=== PATIENT | male | born 1940 | race Caucasian/White ===

== ENCOUNTER 2020-08-13 13:42 | Emergency (ER) | payer BC | END 2020-08-13 14:43 | disposition home or self-care (01) | LOC: JVIRT 13:42 | DX: U07.1 COVID-19 (principal) | CPT/HCPCS: C9803; G2012-GT; U0003 ==

== ENCOUNTER 2021-07-17 06:51 | Day surgery (SDC) | payer BC ==
[2021-07-09 14:49] VITALS: BMI 33.4
[2021-07-17] MEDS ORDERED: BUPIVACAINE HCL/PF 0.25% (2.5MG/ML) 10 ML VIAL ONE (08:26)
[2021-07-17] MEDS ORDERED: PROPOFOL 20 ML ONE (08:41)
[2021-07-17] MEDS ORDERED: MIDAZOLAM HCL 2 MG/2 ML SINGLE DOSE VIAL ONE (08:41)
[2021-07-17] MEDS ORDERED: ceFAZolin SODIUM 1 GM VIAL ONE (08:46)
[2021-07-17] MEDS ORDERED: ONDANSETRON 4 MG/2 ML VIAL ONE (08:48)
[2021-07-17] MEDS ORDERED: BUPIVACAINE HCL/PF 0.25% (2.5MG/ML) 10 ML VIAL IJ ONE (08:57)
[2021-07-17] MEDS ORDERED: LIDOCAINE HCL 1%, 10 MG/ML (50 mL VIAL) INF ONE (08:57)
[2021-07-17 10:30] VITALS: TEMP 97.8
[2021-07-17 10:35] VITALS: BP 110/56; PULSE 78
== END 2021-07-17 10:50 | disposition home or self-care (01) ==
LOC: FASU 06:51
PROVIDERS: ATTEND Orthopaedic Surgery
PROC: 01N50ZZ Release Median Nerve, Open Approach (ICD-10-PCS; principal; 2021-07-17 08:57)
PROC: 0LN70ZZ Release Right Hand Tendon, Open Approach (ICD-10-PCS; 2021-07-17 08:57)
DX: G56.01 Carpal tunnel syndrome, right upper limb (principal); M65.331 Trigger finger, right middle finger; M65.9 Synovitis and tenosynovitis, unspecified
CPT/HCPCS: 82962

== ENCOUNTER 2022-01-28 13:01 | Observation (INO) | payer BC, OTHER ==
[2022-01-28 13:11] VITALS: BMI 31.9
[2022-01-28] MEDS ORDERED: ACETAMINOPHEN 1000 MG/100 ML BAG IVPB ONE (13:58)
[2022-01-28] MEDS ORDERED: ACETAMINOPHEN INJECTION 100 ML IVPB ONE ×2 (14:03→22:48)
[2022-01-28 15:59] LABS: BASO % 0.7 % (0-2.0); EOS % 2.2 % (0-4.5); HEMATOCRIT 39.4 % (35.4-49); HEMOGLOBIN 12.7 GM/dL (11.7-16.9); LYMPH % 30.1 % (8-40); MCH 27.5 pg (25.7-33.7); MCHC 32.2 g/dl (32.0-35.9); MEAN CELL VOLUME 85.3 fl (80-96); MEAN PLT VOLUME 7.7 fl (7.5-11.1); MONO % 9.8 % (3.8-10.2); NEUT % 57.2 % (42.8-82.8); PLATELET COUNT 266 10^3/uL (134-434); RBC 4.61 M/mm3 (4.00-5.60); RDW 14.9 % (11.9-15.9); WHITE BLOOD COUNT 5.9 K/mm3 (4.0-10.0)
[2022-01-28 16:10] LABS: INR 1.09 (0.83-1.09); PROTHROMBIN TIME (PATIENT) 12.5 SEC (9.7-13.0)
[2022-01-28 16:13] LABS: ACTIVATED PTT 30.5 SECONDS (25.2-36.5)
[2022-01-28 16:21] LABS: ALBUMIN 3.9 g/dl (3.4-5.0); BLOOD UREA NITROGEN 16.2 mg/dL (7-18); CALCIUM 9.3 mg/dL (8.5-10.1); MAGNESIUM 2.1 mg/dL (1.8-2.4)
[2022-01-28 16:24] LABS: CREATININE 0.9 mg/dL (0.55-1.3)
[2022-01-28 16:26] LABS: BILIRUBIN,TOTAL 0.2 mg/dL (0.2-1); TOT PROT 7.6 g/dl (6.4-8.2)
[2022-01-28] MEDS ORDERED: KETOROLAC TROMETHAMINE 30 MG/1 ML VIAL IVPUSH ONE (18:03)
[2022-01-28] MEDS ORDERED: KETOROLAC TROMETHAMINE 15 MG/ML VIAL ONE (18:05)
[2022-01-28] MEDS ORDERED: METOPROLOL TARTRATE 50 MG TABLET (FP) PO ONE (19:47)
[2022-01-28] MEDS ORDERED: RAMIPRIL 5 MG CAPSULE PO ONE (19:50)
[2022-01-28] MEDS ORDERED: METOPROLOL TARTRATE 50 MG TABLET (FP) ONE ×2 (19:51→22:48)
[2022-01-28] MEDS ORDERED: RAMIPRIL 5 MG CAPSULE ONE (20:44)
[2022-01-28] MEDS ORDERED: METOPROLOL TARTRATE 50 MG TABLET (FP) PO SCH (22:00)
[2022-01-28] MEDS ORDERED: HYDROCHLOROTHIAZIDE 25 MG TABLET (FP) PO SCH (22:00)
[2022-01-28] MEDS ORDERED: HYDROCHLOROTHIAZIDE 25 MG TABLET (FP) ONE (22:47)
[2022-01-28] MEDS: INSULIN SLIDING SCALE (NOVOLOG) 1 VIAL SQ SCH (23:00)
[2022-01-28] MEDS: ACETAMINOPHEN 1000 MG/100 ML BAG IVPB SCH (23:00)
[2022-01-29 05:46] LABS: URINE APPEARANCE CLEAR; URINE BILIRUBIN NEGATIVE (NEGATIVE); URINE COLOR YELLOW; URINE GLUCOSE (UA) NEGATIVE (NEGATIVE); URINE KETONE NEGATIVE (NEGATIVE); URINE LEUK ESTERASE NEGATIVE (NEGATIVE); URINE NITRITE NEGATIVE (NEGATIVE); URINE PROTEIN NEGATIVE (NEGATIVE); URINE UROBILINOGEN 0.2 mg/dL (0.2-1.0)
[2022-01-29] MEDS: INSULIN SLIDING SCALE (NOVOLOG) 1 VIAL SQ SCH ×4 (08:18→21:06)
[2022-01-29] MEDS: CHLORTHALIDONE 25 MG TABLET PO SCH (09:13)
[2022-01-29] MEDS: CLOPIDOGREL BISULFATE 75 MG TABLET (FP) PO SCH (09:13)
[2022-01-29] MEDS: ACETAMINOPHEN 1000 MG/100 ML BAG IVPB SCH ×2 (09:14→18:23)
[2022-01-29] MEDS: RAMIPRIL 5 MG CAPSULE PO SCH (09:14)
[2022-01-29] MEDS: ENOXAPARIN NA (PORCINE) 40 MG/0.4 ML DISP.SYRIN SQ SCH (09:16)
[2022-01-29 09:17] LABS: INR 1.13 (0.83-1.09)
[2022-01-29 09:19] LABS: ACTIVATED PTT 29.3 SECONDS (25.2-36.5)
[2022-01-29 09:26] LABS: BASO % 0.8 % (0-2.0); EOS % 1.5 % (0-4.5); HEMATOCRIT 41.2 % (35.4-49); HEMOGLOBIN 13.5 GM/dL (11.7-16.9); LYMPH % 31.1 % (8-40); MCH 27.8 pg (25.7-33.7); MCHC 32.8 g/dl (32.0-35.9); MEAN CELL VOLUME 84.9 fl (80-96); MEAN PLT VOLUME 7.5 fl (7.5-11.1); NEUT % 55.6 % (42.8-82.8); PLATELET COUNT 261 10^3/uL (134-434); RBC 4.86 M/mm3 (4.00-5.60); RDW 14.7 % (11.9-15.9); WHITE BLOOD COUNT 6.4 K/mm3 (4.0-10.0)
[2022-01-29 09:29] LABS: BLOOD UREA NITROGEN 17.1 mg/dL (7-18); CALCIUM 9.3 mg/dL (8.5-10.1); MAGNESIUM 2.1 mg/dL (1.8-2.4)
[2022-01-29 09:32] LABS: CREATININE 0.9 mg/dL (0.55-1.3); PHOSPHOROUS 3.6 mg/dL (2.5-4.9)
[2022-01-29 09:33] LABS: BILIRUBIN,TOTAL 0.6 mg/dL (0.2-1); TOT PROT 7.6 g/dl (6.4-8.2)
[2022-01-29 09:35] LABS: N-TERMINAL BNP 293.7 pg/ml (5-450)
[2022-01-29] MEDS ORDERED: VALSARTAN 160 MG TABLET PO SCH (10:00)
[2022-01-29] MEDS: amLODIPine BESYLATE 10 MG TABLET (FP) PO SCH (17:38)
[2022-01-29] MEDS ORDERED: ATORVASTATIN CA 10 MG TABLET (FP) PO SCH (22:00)
[2022-01-30] MEDS: INSULIN SLIDING SCALE (NOVOLOG) 1 VIAL SQ SCH ×2 (06:06→12:18)
[2022-01-30] MEDS: CLOPIDOGREL BISULFATE 75 MG TABLET (FP) PO SCH (10:04)
[2022-01-30] MEDS: ENOXAPARIN NA (PORCINE) 40 MG/0.4 ML DISP.SYRIN SQ SCH (10:05)
[2022-01-30] MEDS: amLODIPine BESYLATE 10 MG TABLET (FP) PO SCH (10:05)
[2022-01-30] MEDS: RAMIPRIL 5 MG CAPSULE PO SCH (10:05)
[2022-01-30] MEDS: CHLORTHALIDONE 25 MG TABLET PO SCH (10:05)
[2022-01-30] MEDS ORDERED: ACETAMINOPHEN 1000 MG/100 ML BAG IVPB PRN (11:07)
[2022-01-30 13:34] VITALS: BP 115/79; PULSE 84; TEMP 98.3
== END 2022-01-30 16:30 | disposition home or self-care (01) ==
LOC: JER 13:01 → JERBED 18:38 → INTOOBSV 18:38 → J4S 01-29 08:01
PROVIDERS: ADMIT Hospitalist; ATTEND Internal Medicine
PROC: 3E033NZ Introduction of Analgesics, Hypnotics, Sedatives into Peripheral Vein, Percutaneous Approach (ICD-10-PCS; principal; 2022-01-28)
PROC: 3E023GC Introduction of Other Therapeutic Substance into Muscle, Percutaneous Approach (ICD-10-PCS; 2022-01-28)
PROC: 3E0333Z Introduction of Anti-inflammatory into Peripheral Vein, Percutaneous Approach (ICD-10-PCS; 2022-01-28)
DX: I16.0 Hypertensive urgency (principal); I11.0 Hypertensive heart disease with heart failure; I50.30 Unspecified diastolic (congestive) heart failure; E11.9 Type 2 diabetes mellitus without complications; E78.5 Hyperlipidemia, unspecified; E66.9 Obesity, unspecified; F41.9 Anxiety disorder, unspecified; Z68.31 Body mass index [BMI] 31.0-31.9, adult; I44.7 Left bundle-branch block, unspecified; Z86.73 Personal history of transient ischemic attack (TIA), and cerebral infarction without residual deficits; Z79.01 Long term (current) use of anticoagulants; Z96.653 Presence of artificial knee joint, bilateral
CPT/HCPCS: 36415; 71046-TC-FY; 80053; 80061; 81003; 82962; 83036; 83735; 83880; 84100; 84443; 84484; 85025; 85610; 85730; 93005; 93010; 93306-TC; 96372; 96374; 96375; 96376; 99285-25; C9803-CS; G0378; U0003; U0005

== ENCOUNTER 2022-03-12 05:58 | Day surgery (SDC) | payer OTHER ==
[2022-03-05 09:43] VITALS: BMI 31.9
[2022-03-12] MEDS ORDERED: MIDAZOLAM HCL 2 MG/2 ML SINGLE DOSE VIAL ONE ×4 (07:06→08:58)
[2022-03-12] MEDS ORDERED: PROPOFOL 20 ML ONE ×3 (07:06→09:07)
[2022-03-12] MEDS ORDERED: ROPIVACAINE HCL/PF 100 MG/20 ML VIAL ONE (07:14)
[2022-03-12] MEDS ORDERED: DEXAMETHASONE SOD PHOSPHATE 10 MG/1 ML VIAL ONE (07:14)
[2022-03-12] MEDS ORDERED: LIDOCAINE HCL 1%, 10 MG/ML (20ML VIAL) ONE (07:54)
[2022-03-12] MEDS ORDERED: BUPIVACAINE HCL/PF 0.25% (2.5MG/ML) 10 ML VIAL ONE (07:55)
[2022-03-12] MEDS ORDERED: BUPIVACAINE HCL/PF 2.5 MG/ML - 30 ML VIAL IJ ONE (07:55)
[2022-03-12] MEDS ORDERED: METOPROLOL TARTRATE 5 MG/5 ML VIAL ONE (09:30)
[2022-03-12] MEDS ORDERED: ONDANSETRON 4 MG/2 ML VIAL ONE (09:30)
[2022-03-12] MEDS ORDERED: DEXAMETHASONE SOD PHOSPHATE 4 MG/1 ML VIAL ONE (09:30)
[2022-03-12] MEDS ORDERED: ceFAZolin SODIUM 1 GM VIAL ONE (09:30)
[2022-03-12] MEDS ORDERED: oxyCODONE HCL 5 MG TABLET PO PRN (09:50)
[2022-03-12] MEDS ORDERED: ONDANSETRON 4 MG/2 ML VIAL IVPUSH PRN (09:50)
[2022-03-12] MEDS ORDERED: LACTATED RINGERS SOLUTION 1,000 ML IV SCH (10:00)
[2022-03-12 10:13] VITALS: TEMP 97.5
[2022-03-12 12:32] VITALS: BP 133/63; PULSE 88
== END 2022-03-12 13:00 | disposition home or self-care (01) ==
LOC: FASU 05:58
PROVIDERS: ATTEND Orthopaedic Surgery
PROC: 0RBK4ZZ Excision of Left Shoulder Joint, Percutaneous Endoscopic Approach (ICD-10-PCS; 2022-03-12)
PROC: 0LQ24ZZ Repair Left Shoulder Tendon, Percutaneous Endoscopic Approach (ICD-10-PCS; principal; 2022-03-12 07:30)
PROC: 0RNK4ZZ Release Left Shoulder Joint, Percutaneous Endoscopic Approach (ICD-10-PCS; 2022-03-12 07:30)
DX: M75.102 Unspecified rotator cuff tear or rupture of left shoulder, not specified as traumatic (principal); M75.02 Adhesive capsulitis of left shoulder; M75.42 Impingement syndrome of left shoulder; M19.012 Primary osteoarthritis, left shoulder; M24.112 Other articular cartilage disorders, left shoulder; M65.812 Other synovitis and tenosynovitis, left shoulder
CPT/HCPCS: 82962; 94760; J1100

== ENCOUNTER 2022-05-26 13:35 | Observation (INO) | payer OTHER ==
[2022-05-26 13:44] VITALS: BMI 31.9
[2022-05-26] MEDS ORDERED: ACETAMINOPHEN 1000 MG/100 ML BAG IVPB ONE (15:28)
[2022-05-26] MEDS ORDERED: ACETAMINOPHEN INJECTION 100 ML IVPB ONE ×2 (15:50→22:39)
[2022-05-26 17:01] LABS: BASO % 0.4 % (0-2.0); EOS % 1.3 % (0-4.5); HEMATOCRIT 37.9 % (35.4-49); HEMOGLOBIN 12.5 GM/dL (11.7-16.9); LYMPH % 18.3 % (8-40); MCH 28.1 pg (25.7-33.7); MCHC 32.9 g/dl (32.0-35.9); MEAN CELL VOLUME 85.4 fl (80-96); MEAN PLT VOLUME 7.8 fl (7.5-11.1); MONO % 11.8 % (3.8-10.2); NEUT % 68.2 % (42.8-82.8); PLATELET COUNT 256 10^3/uL (134-434); RBC 4.43 M/mm3 (4.00-5.60); RDW 14.2 % (11.9-15.9); WHITE BLOOD COUNT 8.5 K/mm3 (4.0-10.0)
[2022-05-26 17:21] LABS: CHLORIDE 104 mmol/L (98-107); SODIUM 137 mmol/L (136-145)
[2022-05-26 17:23] LABS: ACTIVATED PTT 29.2 SECONDS (25.2-36.5); INR 1.15 (0.83-1.09); PROTHROMBIN TIME (PATIENT) 13.2 SEC (9.7-13.0)
[2022-05-26 17:25] LABS: ALBUMIN 3.2 g/dl (3.4-5.0); BLOOD UREA NITROGEN 20.2 mg/dL (7-18); CALCIUM 9.1 mg/dL (8.5-10.1); CO2 27 mmol/L (21-32); GLUCOSE,RANDOM 119 mg/dL (74-106)
[2022-05-26 17:28] LABS: CREATININE 1.1 mg/dL (0.55-1.3); SGOT/AST 70 U/L (15-37); SGPT/ALT 27 U/L (13-61)
[2022-05-26 17:30] LABS: BILIRUBIN,TOTAL 0.9 mg/dL (0.2-1); TOT PROT 7.4 g/dl (6.4-8.2)
[2022-05-26 17:31] LABS: ALK PHOS 59 U/L (45-117)
[2022-05-26 17:37] LABS: ANION GAP 7 MMOL/L (8-16)
[2022-05-26] MEDS ORDERED: ASPIRIN 81 MG CHEWABLE TABLETS PO ONE (17:39)
[2022-05-26] MEDS ORDERED: FAMOTIDINE 20 MG/50 ML IVPB 20 MG/50 ML MG IVPB ONE ×2 (17:39→17:48)
[2022-05-26] MEDS ORDERED: SUCRALFATE 1 GM TABLET (FP) PO ONE (17:39)
[2022-05-26] MEDS ORDERED: MAG HYDROX/AL HYDROX/SIMETH 30 ML UNIT-DOSE CUP PO ONE (17:39)
[2022-05-26] MEDS ORDERED: SUCRALFATE 1 GM TABLET (FP) ONE (17:48)
[2022-05-26] MEDS ORDERED: ASPIRIN 81 MG CHEWABLE TABLETS ONE (17:48)
[2022-05-26] MEDS ORDERED: MAG HYDROX/AL HYDROX/SIMETH 30 ML UNIT-DOSE CUP ONE (17:48)
[2022-05-26] MEDS ORDERED: DOCUSATE SODIUM 100 MG CAPSULE (FP) PO PRN (19:56)
[2022-05-26] MEDS: ACETAMINOPHEN 1000 MG/100 ML BAG IVPB PRN (23:00)
[2022-05-27] MEDS: INSULIN SLIDING SCALE (NOVOLOG) 1 VIAL SQ SCH ×5 (00:24→23:00)
[2022-05-27] MEDS: traMADol HCL 50 MG TABLET PO PRN ×2 (06:14→21:08)
[2022-05-27] MEDS ORDERED: CYCLOBENZAPRINE HCL 5 MG TABLET PO PRN (06:59)
[2022-05-27] MEDS: CLOPIDOGREL BISULFATE 75 MG TABLET (FP) PO SCH (09:42)
[2022-05-27] MEDS: FUROSEMIDE 20 MG TABLET (FP) PO SCH ×2 (09:42→21:11)
[2022-05-27 10:25] LABS: HEMATOCRIT 37.8 % (35.4-49); HEMOGLOBIN 12.5 GM/dL (11.7-16.9); MCH 28.1 pg (25.7-33.7); MCHC 32.9 g/dl (32.0-35.9); MEAN CELL VOLUME 85.4 fl (80-96); MEAN PLT VOLUME 7.7 fl (7.5-11.1); PLATELET COUNT 252 10^3/uL (134-434); RBC 4.43 M/mm3 (4.00-5.60); RDW 14.3 % (11.9-15.9)
[2022-05-27 10:47] LABS: BLOOD UREA NITROGEN 14.5 mg/dL (7-18); MAGNESIUM 1.9 mg/dL (1.8-2.4)
[2022-05-27] MEDS: ACETAMINOPHEN 1000 MG/100 ML BAG IVPB PRN (13:10)
[2022-05-27] MEDS: CHLORTHALIDONE 25 MG TABLET PO SCH (13:31)
[2022-05-27] MEDS: METOPROLOL TARTRATE 50 MG TABLET (FP) PO SCH ×2 (13:34→21:11)
[2022-05-27] MEDS ORDERED: clonazePAM 0.5 MG TABLET PO PRN (13:40)
[2022-05-27] MEDS: SACUBITRIL/VALSARTAN 24 MG-26 MG TABLET PO SCH ×2 (14:22→21:11)
[2022-05-28] MEDS ORDERED: ACETAMINOPHEN 325 MG TABLET (FP) PO PRN
[2022-05-28] MEDS: INSULIN SLIDING SCALE (NOVOLOG) 1 VIAL SQ SCH ×2 (06:47→11:07)
[2022-05-28 09:22] VITALS: BP 152/85; PULSE 80; RESP 18; TEMP 98
[2022-05-28] MEDS: CHLORTHALIDONE 25 MG TABLET PO SCH (09:24)
[2022-05-28] MEDS: CLOPIDOGREL BISULFATE 75 MG TABLET (FP) PO SCH (09:24)
[2022-05-28] MEDS: METOPROLOL TARTRATE 50 MG TABLET (FP) PO SCH (09:24)
[2022-05-28] MEDS: FUROSEMIDE 20 MG TABLET (FP) PO SCH (09:24)
[2022-05-28] MEDS: SACUBITRIL/VALSARTAN 24 MG-26 MG TABLET PO SCH (09:24)
== END 2022-05-28 15:00 | disposition home or self-care (01) ==
LOC: JER 13:35 → JERBED 18:08 → J4W 05-27 05:12
PROVIDERS: ADMIT Internal Medicine; ATTEND Internal Medicine
PROC: 3E033NZ Introduction of Analgesics, Hypnotics, Sedatives into Peripheral Vein, Percutaneous Approach (ICD-10-PCS; principal; 2022-05-26)
PROC: 3E033GC Introduction of Other Therapeutic Substance into Peripheral Vein, Percutaneous Approach (ICD-10-PCS; 2022-05-26)
DX: I25.10 Atherosclerotic heart disease of native coronary artery without angina pectoris (principal); I44.7 Left bundle-branch block, unspecified; I10 Essential (primary) hypertension; E11.9 Type 2 diabetes mellitus without complications; M25.511 Pain in right shoulder; R07.9 Chest pain, unspecified; R06.09 Other forms of dyspnea; Z86.73 Personal history of transient ischemic attack (TIA), and cerebral infarction without residual deficits; E66.8 Other obesity; Z68.31 Body mass index [BMI] 31.0-31.9, adult
CPT/HCPCS: 36415; 71046-TC-FY; 72050-TC-FY; 73030-TC-RT-FY; 80048; 80053; 82962; 83735; 84132; 84484; 85025; 85027; 85610; 85730; 93005; 93010; 93306-TC; 96365; 96375; 96376; 99285-25; C9803-CS; G0378; U0003; U0005

== ENCOUNTER 2022-05-29 01:50 | Observation (INO) | payer OTHER ==
[2022-05-29] MEDS ORDERED: ACETAMINOPHEN 500 MG TABLET (FP) PO ONE (03:10)
[2022-05-29] MEDS ORDERED: ACETAMINOPHEN 325 MG TABLET (FP) ONE ×3 (03:43→14:11)
[2022-05-29 04:05] LABS: BASO % 0.5 % (0-2.0); EOS % 0.6 % (0-4.5); HEMATOCRIT 41.6 % (35.4-49); HEMOGLOBIN 13.9 GM/dL (11.7-16.9); LYMPH % 18.1 % (8-40); MCH 28.4 pg (25.7-33.7); MCHC 33.3 g/dl (32.0-35.9); MEAN CELL VOLUME 85.2 fl (80-96); MEAN PLT VOLUME 7.1 fl (7.5-11.1); MONO % 9.4 % (3.8-10.2); NEUT % 71.4 % (42.8-82.8); PLATELET COUNT 311 10^3/uL (134-434); RBC 4.88 M/mm3 (4.00-5.60); RDW 14.1 % (11.9-15.9); WHITE BLOOD COUNT 8.2 K/mm3 (4.0-10.0)
[2022-05-29 04:26] LABS: CALCIUM 9.4 mg/dL (8.5-10.1)
[2022-05-29 04:27] LABS: ALBUMIN 3.7 g/dl (3.4-5.0)
[2022-05-29 04:30] LABS: CREATININE 1.2 mg/dL (0.55-1.3)
[2022-05-29 04:31] LABS: BILIRUBIN,TOTAL 0.3 mg/dL (0.2-1); TOT PROT 7.8 g/dl (6.4-8.2)
[2022-05-29] MEDS ORDERED: morphine CARPU-JECT 4 MG/1 ML DISP.SYRIN IVPUSH ONE (05:00)
[2022-05-29] MEDS ORDERED: morphine SULFATE 4 MG/ML VIAL ONE (05:23)
[2022-05-29] MEDS ORDERED: QUEtiapine FUMARATE 25 MG TABLET ONE (06:15)
[2022-05-29] MEDS ORDERED: KETOROLAC TROMETHAMINE 15 MG/ML VIAL IVPUSH PRN (07:54)
[2022-05-29] MEDS ORDERED: RAMIPRIL 5 MG CAPSULE PO SCH (10:00)
[2022-05-29] MEDS: ACETAMINOPHEN 325 MG TABLET (FP) PO SCH ×3 (10:08→21:24)
[2022-05-29] MEDS: RAMIPRIL 5 MG CAPSULE PO SCH (10:09)
[2022-05-29] MEDS: ENOXAPARIN NA (PORCINE) 40 MG/0.4 ML DISP.SYRIN SQ SCH (10:09)
[2022-05-29] MEDS: ASPIRIN 81 MG CHEWABLE TABLETS PO SCH (10:09)
[2022-05-29] MEDS: amLODIPine BESYLATE 10 MG TABLET (FP) PO SCH (10:10)
[2022-05-29] MEDS: PANTOPRAZOLE 40 MG TABLET PO SCH (10:10)
[2022-05-29] MEDS ORDERED: PANTOPRAZOLE 40 MG TABLET PO ONE (10:39)
[2022-05-29] MEDS ORDERED: amLODIPine BESYLATE 10 MG TABLET (FP) ONE (10:39)
[2022-05-29] MEDS ORDERED: RAMIPRIL 5 MG CAPSULE ONE (10:40)
[2022-05-29] MEDS ORDERED: ASPIRIN 81 MG CHEWABLE TABLETS ONE (10:40)
[2022-05-29] MEDS ORDERED: ENOXAPARIN NA (PORCINE) 40 MG/0.4 ML DISP.SYRIN SQ ONE (10:41)
[2022-05-29] MEDS: FUROSEMIDE 40 MG TABLET (FP) PO SCH (14:00)
[2022-05-29] MEDS ORDERED: FUROSEMIDE 40 MG TABLET (FP) ONE (14:11)
[2022-05-29 17:21] VITALS: BMI 32.5
[2022-05-29] MEDS: ATORVASTATIN CA 80 MG TABLET (FP) PO SCH (21:24)
[2022-05-30] MEDS: oxyCODONE HCL 5 MG TABLET PO PRN (00:23)
[2022-05-30] MEDS: ACETAMINOPHEN 325 MG TABLET (FP) PO SCH ×4 (01:54→21:17)
[2022-05-30] MEDS: FUROSEMIDE 40 MG TABLET (FP) PO SCH ×2 (06:24→14:46)
[2022-05-30] MEDS: PANTOPRAZOLE 40 MG TABLET PO SCH (09:34)
[2022-05-30] MEDS: ENOXAPARIN NA (PORCINE) 40 MG/0.4 ML DISP.SYRIN SQ SCH (09:34)
[2022-05-30] MEDS: RAMIPRIL 5 MG CAPSULE PO SCH (09:36)
[2022-05-30] MEDS: amLODIPine BESYLATE 10 MG TABLET (FP) PO SCH (09:36)
[2022-05-30] MEDS: ASPIRIN 81 MG CHEWABLE TABLETS PO SCH (09:38)
[2022-05-30 09:39] LABS: BASO % 0.5 % (0-2.0); EOS % 1.8 % (0-4.5); HEMATOCRIT 40.7 % (35.4-49); HEMOGLOBIN 13.6 GM/dL (11.7-16.9); LYMPH % 19.5 % (8-40); MCH 28.4 pg (25.7-33.7); MCHC 33.4 g/dl (32.0-35.9); MEAN CELL VOLUME 85.1 fl (80-96); MEAN PLT VOLUME 7.3 fl (7.5-11.1); NEUT % 69.2 % (42.8-82.8); PLATELET COUNT 346 10^3/uL (134-434); RBC 4.78 M/mm3 (4.00-5.60); RDW 13.9 % (11.9-15.9); WHITE BLOOD COUNT 7.3 K/mm3 (4.0-10.0)
[2022-05-30 09:57] LABS: ALBUMIN 3.6 g/dl (3.4-5.0)
[2022-05-30 09:58] LABS: BLOOD UREA NITROGEN 37.3 mg/dL (7-18)
[2022-05-30 10:00] LABS: CREATININE 1.3 mg/dL (0.55-1.3)
[2022-05-30 10:02] LABS: BILIRUBIN,TOTAL 0.6 mg/dL (0.2-1); CALCIUM 9.2 mg/dL (8.5-10.1); TOT PROT 7.9 g/dl (6.4-8.2)
[2022-05-30 18:32] VITALS: RESP 18
[2022-05-30] MEDS: ATORVASTATIN CA 80 MG TABLET (FP) PO SCH (21:18)
[2022-05-31] MEDS: oxyCODONE HCL 5 MG TABLET PO PRN ×2 (00:51→09:56)
[2022-05-31] MEDS: ACETAMINOPHEN 325 MG TABLET (FP) PO SCH ×3 (02:20→15:00)
[2022-05-31] MEDS: FUROSEMIDE 40 MG TABLET (FP) PO SCH (06:14)
[2022-05-31 09:01] LABS: BASO % 0.8 % (0-2.0); EOS % 2.7 % (0-4.5); HEMATOCRIT 38.9 % (35.4-49); HEMOGLOBIN 12.8 GM/dL (11.7-16.9); LYMPH % 26.8 % (8-40); MCH 27.9 pg (25.7-33.7); MCHC 32.8 g/dl (32.0-35.9); MEAN CELL VOLUME 85.1 fl (80-96); MEAN PLT VOLUME 7.2 fl (7.5-11.1); MONO % 10.6 % (3.8-10.2); NEUT % 59.1 % (42.8-82.8); PLATELET COUNT 320 10^3/uL (134-434); RBC 4.58 M/mm3 (4.00-5.60); RDW 14.2 % (11.9-15.9); WHITE BLOOD COUNT 5.8 K/mm3 (4.0-10.0)
[2022-05-31 09:26] LABS: CALCIUM 9.1 mg/dL (8.5-10.1)
[2022-05-31 09:27] LABS: ALBUMIN 3.7 g/dl (3.4-5.0); BLOOD UREA NITROGEN 35.2 mg/dL (7-18)
[2022-05-31 09:30] LABS: CREATININE 1.2 mg/dL (0.55-1.3)
[2022-05-31 09:32] LABS: BILIRUBIN,TOTAL 0.4 mg/dL (0.2-1); TOT PROT 7.6 g/dl (6.4-8.2)
[2022-05-31] MEDS: ASPIRIN 81 MG CHEWABLE TABLETS PO SCH (09:53)
[2022-05-31] MEDS: ENOXAPARIN NA (PORCINE) 40 MG/0.4 ML DISP.SYRIN SQ SCH (09:53)
[2022-05-31] MEDS: RAMIPRIL 5 MG CAPSULE PO SCH (09:54)
[2022-05-31] MEDS: amLODIPine BESYLATE 10 MG TABLET (FP) PO SCH (09:54)
[2022-05-31] MEDS: PANTOPRAZOLE 40 MG TABLET PO SCH (09:54)
[2022-05-31] MEDS ORDERED: LIDOCAINE HCL 1%, 10 MG/ML (20ML VIAL) SQ ONE (12:00)
[2022-05-31] MEDS ORDERED: methylPREDNISolone ACET (DEPO) 80 MG/1 ML VIAL IAR ONE (12:00)
[2022-05-31 14:15] VITALS: BP 106/53; PULSE 86; TEMP 97.8
== END 2022-05-31 16:55 | disposition home or self-care (01) ==
LOC: JER 01:50 → JERBED 03:40 → UNDOADMOB 03:40 → INTOOBSV 07:54 → OBSVTOIN 07:54 → JERBED 16:05 → J7W 16:05 → JERBED 16:25 → J7W 16:25
PROVIDERS: ADMIT Internal Medicine; ATTEND Internal Medicine
PROC: 3E023GC Introduction of Other Therapeutic Substance into Muscle, Percutaneous Approach (ICD-10-PCS; principal; 2022-05-29)
PROC: 3E033NZ Introduction of Analgesics, Hypnotics, Sedatives into Peripheral Vein, Percutaneous Approach (ICD-10-PCS; 2022-05-29)
DX: I11.0 Hypertensive heart disease with heart failure (principal); I50.9 Heart failure, unspecified; Z86.73 Personal history of transient ischemic attack (TIA), and cerebral infarction without residual deficits; E11.9 Type 2 diabetes mellitus without complications; I25.10 Atherosclerotic heart disease of native coronary artery without angina pectoris
CPT/HCPCS: 0241U-QW; 36415; 71045-TC-FY; 80053; 82550; 82553; 84484; 85025; 85651; 86140; 93005; 93010; 96372; 96374; 97116-GP; 99285-25; G0378

== ENCOUNTER 2023-12-26 20:07 | Observation (INO) | payer OTHER ==
[2023-12-26 21:37] LABS: BASO % 0.8 % (0-2.0); EOS % 2.2 % (0-4.5); HEMATOCRIT 43.3 % (35.4-49); HEMOGLOBIN 14.1 GM/dL (11.7-16.9); LYMPH % 23.1 % (8-40); MCH 27.9 pg (25.7-33.7); MCHC 32.7 g/dl (32.0-35.9); MEAN CELL VOLUME 85.4 fl (80-96); MEAN PLT VOLUME 8.2 fl (7.5-11.1); MONO % 9.5 % (3.8-10.2); NEUT % 64.4 % (42.8-82.8); PLATELET COUNT 220 10^3/uL (134-434); RBC 5.07 M/mm3 (4.00-5.60); RDW 14.3 % (11.9-15.9); WHITE BLOOD COUNT 6.7 K/mm3 (4.0-10.0)
[2023-12-26 21:43] LABS: INR 1.12 (0.83-1.09)
[2023-12-26 21:46] LABS: ACTIVATED PTT 30.3 SECONDS (25.2-36.5)
[2023-12-26 21:48] LABS: POTASSIUM 4.3 mmol/L (3.5-5.1)
[2023-12-26 21:50] LABS: CALCIUM 8.6 mg/dL (8.5-10.1)
[2023-12-26 21:51] LABS: ALBUMIN 3.7 g/dl (3.4-5.0); BLOOD UREA NITROGEN 20.9 mg/dL (7-18)
[2023-12-26 21:54] LABS: CREATININE 1.4 mg/dL (0.55-1.3)
[2023-12-26 21:56] LABS: BILIRUBIN,TOTAL 0.3 mg/dL (0.2-1); TOT PROT 7.4 g/dl (6.4-8.2)
[2023-12-26 21:59] LABS: N-TERMINAL BNP 114.3 pg/ml (5-450)
[2023-12-26] MEDS ORDERED: CARVEDILOL 25 MG TABLET (FP) ONE (23:50)
[2023-12-26] MEDS ORDERED: VALSARTAN 80 MG TABLET ONE (23:50)
[2023-12-26] MEDS: VALSARTAN 160 MG TABLET PO ONE (23:54)
[2023-12-26] MEDS: CARVEDILOL 25 MG TABLET (FP) PO ONE (23:54)
[2023-12-27] MEDS: FUROSEMIDE 40 MG/4 ML INJECTABLE VIAL IVPUSH ONE (05:23)
[2023-12-27] MEDS ORDERED: FUROSEMIDE 40 MG/4 ML INJECTABLE VIAL ONE (06:06)
[2023-12-27] MEDS: FUROSEMIDE 40 MG/4 ML INJECTABLE VIAL IVPUSH SCH (06:11)
[2023-12-27 06:25] LABS: HEMOGLOBIN 13.4 GM/dL (11.7-16.9); MCH 28.2 pg (25.7-33.7); MCHC 32.6 g/dl (32.0-35.9); MEAN CELL VOLUME 86.4 fl (80-96); MEAN PLT VOLUME 8.1 fl (7.5-11.1); PLATELET COUNT 187 10^3/uL (134-434); RBC 4.75 M/mm3 (4.00-5.60); RDW 14.2 % (11.9-15.9); WHITE BLOOD COUNT 7.6 K/mm3 (4.0-10.0)
[2023-12-27 06:44] LABS: CALCIUM 8.7 mg/dL (8.5-10.1)
[2023-12-27 06:45] LABS: ALBUMIN 3.3 g/dl (3.4-5.0); BLOOD UREA NITROGEN 21.2 mg/dL (7-18)
[2023-12-27 06:46] LABS: MAGNESIUM 1.9 mg/dL (1.8-2.4)
[2023-12-27 06:49] LABS: BILIRUBIN,TOTAL 0.5 mg/dL (0.2-1); PHOSPHOROUS 3.2 mg/dL (2.5-4.9)
[2023-12-27 06:50] LABS: TOT PROT 6.4 g/dl (6.4-8.2)
[2023-12-27] MEDS ORDERED: HYDROCHLOROTHIAZIDE 25 MG TABLET (FP) PO SCH (10:00)
[2023-12-27] MEDS: VALSARTAN 160 MG TABLET PO SCH (11:40)
[2023-12-27] MEDS ORDERED: ASPIRIN 81 MG CHEWABLE TABLETS ONE (11:41)
[2023-12-27] MEDS ORDERED: FOLIC ACID 1 MG TABLET (FP) ONE (11:41)
[2023-12-27] MEDS ORDERED: ATORVASTATIN CA 10 MG TABLET (FP) ONE (11:41)
[2023-12-27] MEDS ORDERED: ENOXAPARIN NA (PORCINE) 40 MG/0.4 ML DISP.SYRIN SQ ONE (11:42)
[2023-12-27] MEDS: ASPIRIN 81 MG CHEWABLE TABLETS PO SCH (11:46)
[2023-12-27] MEDS: FOLIC ACID 1 MG TABLET (FP) PO SCH (11:47)
[2023-12-27] MEDS: ENOXAPARIN NA (PORCINE) 40 MG/0.4 ML DISP.SYRIN SQ SCH (11:47)
[2023-12-27] MEDS: ATORVASTATIN CA 10 MG TABLET (FP) PO SCH (11:47)
[2023-12-27] MEDS ORDERED: amLODIPine BESYLATE 5 MG TABLET (FP) ONE (14:18)
[2023-12-27] MEDS: amLODIPine BESYLATE 5 MG TABLET (FP) PO SCH (14:21)
[2023-12-27 15:50] VITALS: BMI 34.0
[2023-12-27] MEDS: SACUBITRIL/VALSARTAN 49 MG-51 MG TABLET PO SCH (21:39)
[2023-12-28 07:31] LABS: BASO % 0.8 % (0-2.0); EOS % 2.3 % (0-4.5); HEMATOCRIT 43.5 % (35.4-49); HEMOGLOBIN 14.1 GM/dL (11.7-16.9); MCHC 32.5 g/dl (32.0-35.9); MEAN CELL VOLUME 86.4 fl (80-96); MEAN PLT VOLUME 8.2 fl (7.5-11.1); MONO % 10.9 % (3.8-10.2); PLATELET COUNT 207 10^3/uL (134-434); RBC 5.03 M/mm3 (4.00-5.60); RDW 13.6 % (11.9-15.9); WHITE BLOOD COUNT 7.3 K/mm3 (4.0-10.0)
[2023-12-28 07:50] LABS: POTASSIUM 3.6 mmol/L (3.5-5.1)
[2023-12-28 07:54] LABS: ALBUMIN 3.6 g/dl (3.4-5.0)
[2023-12-28 07:57] LABS: PHOSPHOROUS 3.3 mg/dL (2.5-4.9)
[2023-12-28 07:58] LABS: BILIRUBIN,TOTAL 1.1 mg/dL (0.2-1)
[2023-12-28 08:00] LABS: CALCIUM 9.2 mg/dL (8.5-10.1)
[2023-12-28] MEDS: CARVEDILOL 25 MG TABLET (FP) PO SCH (09:17)
[2023-12-28] MEDS: PATIENT'S OWN MEDICATION (NON-FORMULARY) (Meloxicam [Meloxicam] 15 MG Tablet) PO SCH (09:18)
[2023-12-29 07:11] LABS: BASO % 0.8 % (0-2.0); EOS % 2.4 % (0-4.5); HEMATOCRIT 41.8 % (35.4-49); HEMOGLOBIN 13.6 GM/dL (11.7-16.9); LYMPH % 29.1 % (8-40); MCHC 32.6 g/dl (32.0-35.9); MEAN CELL VOLUME 85.7 fl (80-96); MEAN PLT VOLUME 8.1 fl (7.5-11.1); MONO % 11.4 % (3.8-10.2); NEUT % 56.3 % (42.8-82.8); PLATELET COUNT 201 10^3/uL (134-434); RBC 4.88 M/mm3 (4.00-5.60); RDW 14.2 % (11.9-15.9)
[2023-12-29 07:22] LABS: POTASSIUM 3.8 mmol/L (3.5-5.1)
[2023-12-29 07:24] LABS: CALCIUM 8.8 mg/dL (8.5-10.1)
[2023-12-29 07:25] LABS: ALBUMIN 3.4 g/dl (3.4-5.0)
[2023-12-29 07:28] LABS: CREATININE 1.2 mg/dL (0.55-1.3); PHOSPHOROUS 3.9 mg/dL (2.5-4.9)
[2023-12-29 07:30] LABS: BILIRUBIN,TOTAL 0.6 mg/dL (0.2-1); TOT PROT 6.7 g/dl (6.4-8.2)
[2023-12-29] MEDS: REGADENOSON 0.4 MG/5 ML PRE-FILLED SYRINGE IVPUSH ONE (09:10)
[2023-12-29] MEDS: FUROSEMIDE 40 MG TABLET (FP) PO SCH (10:41)
[2023-12-29 19:51] VITALS: BP 168/82; PULSE 76; RESP 18; TEMP 98.1
== END 2023-12-29 19:53 | disposition short-term general hospital (02) ==
LOC: JER 20:07 → UNDOADMOB 23:44 → JERBED 23:44 → OBSVTOIN 12-27 04:03 → INTOOBSV 12-27 04:03 → JERBED 12-27 13:49 → J4W 12-27 15:25
PROVIDERS: ADMIT Internal Medicine; ATTEND Internal Medicine
PROC: 3E023GC Introduction of Other Therapeutic Substance into Muscle, Percutaneous Approach (ICD-10-PCS; principal; 2023-12-27)
PROC: 3E033GC Introduction of Other Therapeutic Substance into Peripheral Vein, Percutaneous Approach (ICD-10-PCS; 2023-12-27)
DX: I11.0 Hypertensive heart disease with heart failure (principal); R06.09 Other forms of dyspnea; E11.9 Type 2 diabetes mellitus without complications; N17.9 Acute kidney failure, unspecified; E78.5 Hyperlipidemia, unspecified; M54.12 Radiculopathy, cervical region; Z86.73 Personal history of transient ischemic attack (TIA), and cerebral infarction without residual deficits; R06.01 Orthopnea; R77.8 Other specified abnormalities of plasma proteins; R00.2 Palpitations; Z20.828 Contact with and (suspected) exposure to other viral communicable diseases
CPT/HCPCS: 0241U-QW; 36415; 71045-TC-FY; 71275-TC; 78452-TC; 80053; 80061; 82962; 83036; 83735; 83880; 84100; 84439; 84443; 84484; 85025; 85027; 85379; 85610; 85730; 93005; 93010; 93017; 93306-TC; 96372; 96374; 96375; 99285-25; A9502; G0378; J2785; Q9967